=== PATIENT | male | born 1995 | race Caucasian/White ===

== ENCOUNTER 2016-07-26 17:46 | Emergency (ER) | payer OTHER ==
[~2016-07-26] VITALS: Ht 175.3 cm; Wt 90.7 kg
--- NOTE | ~2016-07-26 | EKG ---
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 07/27/16 0739 1753 1753 Michael Currie MD, FACC /EPI
[2016-07-26 18:57] LABS: ABSOLUTE NEUTROPHILS 4.6 thou/uL (1.4-8.2); ANION GAP 11 mmol/L (7-16); BASOPHILS 0.7 % (0.0-2.0); BUN 15 mg/dL (7-18); CALCIUM 9.1 mg/dL (8.5-10.1); CHLORIDE 102 mmol/L (98-107); CO2 26 mmol/L (21-32); CREATININE 1.1 mg/dL (0.6-1.3); EOSINOPHILS 14.5 % (0.0-3.0); GLUCOSE 99 mg/dL (70-99); HEMATOCRIT 42.4 % (42.0-52.0); HEMOGLOBIN 14.9 gm/dL (14.0-18.0); LYMPHOCYTES 29.1 % (24.0-44.0); MCH 30.7 pg (26.0-34.0); MCHC 35.1 % (28.0-37.0); MCV 87.6 fL (80.0-100.0); MONOCYTES 7.3 % (1.0-8.0); PLATELET COUNT 282 thou/uL (150-400); POLYS 48.4 % (36.0-66.0); POTASSIUM 3.9 mmol/L (3.5-5.1); RBC 4.84 mil/uL (4.50-6.00); RDW 12.8 % (10.5-14.5); SODIUM 139 mmol/L (136-145); WBC 9.4 thou/uL (4.0-11.0)
[2016-07-26 18:59] LABS: MANUAL DIFF NO
[2016-07-26 19:06] LABS: TROPONIN-I < 0.04 ng/mL (<0.04-0.07)
[2016-07-26 19:32] LABS: AMP/METHAMP Negative (Negative); BARBITURATES Negative (Negative); BENZODIAZEPINES Negative (Negative); COCAINE Negative (Negative); METHADONE Negative (Negative); OPIATES Negative (Negative); PCP Negative (Negative); THC Negative (Negative)
[2016-07-26] MEDS ORDERED: MOBIC7.5 MG PO (20:06)
[2016-07-26 20:13] VITALS: BP 109/64
== END 2016-07-26 20:16 | disposition home or self-care (01) ==
LOC: ER 17:46
PROVIDERS: Nurse Practitioner Family
DX: R07.89 Other chest pain (principal); F17.210 Nicotine dependence, cigarettes, uncomplicated

== ENCOUNTER 2017-08-14 15:54 | Emergency (ER) | payer BC ==
[~2017-08-14] VITALS: Ht 175.3 cm; Wt 81.7 kg
[~2017-08-14 15:54] MED LIST: MOBIC7.5 MG PO
[2017-08-14] MEDS ORDERED: PROAIR HFA8.5 GM INH (16:50)
[2017-08-14] MEDS ORDERED: TUSSIONEX PENN115 ML PO (16:50)
[2017-08-14] MEDS ORDERED: ZPAK PO (16:51)
== END 2017-08-14 17:07 | disposition home or self-care (01) ==
LOC: ER 15:54
DX: J18.9 Pneumonia, unspecified organism (principal); M79.1 Myalgia; R50.9 Fever, unspecified; F17.210 Nicotine dependence, cigarettes, uncomplicated

== ENCOUNTER 2018-09-24 18:17 | Emergency (ER) | payer OTHER ==
[~2018-09-24] VITALS: Ht 175.3 cm; Wt 81.7 kg
[~2018-09-24 18:17] MED LIST changes: +PROAIR HFA8.5 GM INH; +TUSSIONEX PENN115 ML PO; +ZPAK PO
[2018-09-24 19:00] LABS: ABSOLUTE NEUTROPHILS 4.7 thou/uL (1.4-8.2); BASOPHILS 0.6 % (0.0-2.0); EOSINOPHILS 5.1 % (0.0-3.0); HEMATOCRIT 41.8 % (42.0-52.0); HEMOGLOBIN 14.8 gm/dL (14.0-18.0); MCH 31.5 pg (26.0-34.0); MCHC 35.5 g/dL (28.0-37.0); MCV 88.9 fL (80.0-100.0); MONOCYTES 8.2 % (1.0-8.0); PLATELET COUNT 262 thou/uL (150-400); POLYS 57.1 % (36.0-66.0); RBC 4.69 mil/uL (4.50-6.00); RDW 12.7 % (10.5-14.5); WBC 8.3 thou/uL (4.0-11.0)
[2018-09-24 19:09] LABS: ANION GAP 11 mmol/L (7-16); BUN 7 mg/dL (7-18); CALCIUM 9.2 mg/dL (8.5-10.1); CHLORIDE 102 mmol/L (98-107); CO2 26 mmol/L (21-32); CREATININE 0.8 mg/dL (0.7-1.3); GLUCOSE 112 mg/dL (74-106); POTASSIUM 3.2 mmol/L (3.5-5.1); SODIUM 139 mmol/L (136-145)
[2018-09-24 19:17] LABS: TROPONIN-I <0.06 ng/mL (<0.06)
[2018-09-24 20:17] VITALS: BP 128/84
--- NOTE | 2018-09-25 17:54 | EKG ---
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 : 1995 Requested By: Kannan Lee Order Number: [id number] MD: Michael Currie Measurements Intervals [place] Rate: 73 P: -14 [place]: 160 QRS: 38 QRSD: 83 T: 26 QT: 407 QTc: 449 Interpretive Statements Sinus rhythm ST elev, probable normal early repol pattern Compared to ECG 07/26/2016 17:53:13 No significant changes Electronically Signed On 09-25-2018 17:54:39 CDT by Michael Currie [email or web address] ��������������������������������������������� <ELECTRONICALLY SIGNED> ���������������������������������������� By: Michael Currie MD, [facility] ��������������������������������������������� 09/25/18 1754 1835 183 Michael Currie MD, FACC /EPI
== END 2018-09-24 20:19 | disposition home or self-care (01) ==
LOC: ER 18:17
PROVIDERS: Emergency Medicine
DX: R07.89 Other chest pain (principal); F17.210 Nicotine dependence, cigarettes, uncomplicated